=== PATIENT | female | born 1975 | race African-American/Black ===

== ENCOUNTER 2017-05-05 00:19 | Observation (INO) | payer OTHER ==
[2017-05-05] VITALS (11 sets, daily range): BP systolic 105–121; BP diastolic 55–72
[~2017-05-05] VITALS: Ht 175.3 cm; Wt 95.1 kg
[~2017-05-05 00:19] MED LIST: ACETAMINOPHEN650 M7 PO; ASPIR 8181 M1 PO; ASPIR-LOW81 MG PO; ATORVASTATIN CA40 MG PO; CLOPIDOGREL75 MG PO; FAMOTIDINE20 MG PO; HEPARIN SO5000 UNITS SC; LEVAQUIN500 MG PO; LIPITOR40 MG PO; LO-DOSE ASPIRIN81 M1 PO; METOPROLOL TART25 MG PO; PEPCID20 MG PO; PLAVIX75 MG PO
[2017-05-05 01:30] LABS: HEMATOCRIT 21.9 % (36.0-46.0); MCH 16.5 PG (29.0-34.0); MCHC 29.7 G/DL (30.0-36.0); MCV 55.7 FL (83-99); PLATELET COUNT 247 K/uL (156-360); RBC DIS.WIDTH-CV 20.5 % (11.8-14.6); RBC DIS.WIDTH-SD 39.1 % (39-53); RED BLOOD COUNT 3.93 M/uL (3.80-5.20)
[2017-05-05 01:31] LABS: HEMOGLOBIN 6.5 G/DL (11.9-15.5); INTER. NORMALIZED RATIO 1.1
[2017-05-05 01:34] LABS: PTT 29.1 SEC (25-37)
[2017-05-05 01:35] LABS: CHLORIDE 107 mEq/L (99-109); POTASSIUM 4.1 mEq/L (3.7-5.4); SODIUM 137 mEq/L (136-147)
[2017-05-05 01:37] LABS: GLUCOSE 107 mg/dL (70-99)
[2017-05-05 01:41] LABS: GFR ESTIMATE (CALCULATED) > 59 mL/min/
[2017-05-05 01:42] LABS: UREA NITROGEN (BUN) 11 mg/dL (9-23)
[2017-05-05 01:46] LABS: TROP-I INTERPRETATION NEGATIVE; TROPONIN-I 0.01 ng/mL (0.0-0.30)
[2017-05-05 02:17] LABS: HDL CHOLESTEROL 42 MG/DL (Desirable>=50); LDL CHOLESTEROL 96 mg/dL (Desirable<100); NON-HDL CHOLESTEROL 106 mg/dL (Desirable<160); TOTAL CHOLESTEROL 148 mg/dL (Desirable<200); TRIGLYCERIDES 49 MG/DL (Normal: <150)
[2017-05-05 06:23] LABS: IRON 13 MCG/DL (35-150); TRANSFERRIN (TIBC) 390.5 mg/dL (215-380); TRANSFERRIN SATUR. 3 % (20-55)
[2017-05-05 08:17] LABS: TROP-I INTERPRETATION NEGATIVE; TROPONIN-I < 0.01 ng/mL (0.0-0.30)
[2017-05-05 09:57] LABS: HEMOGLOBIN A1c (GLYCOHEMOGLOB) 5.5 % (Below 5.7)
[2017-05-05] MEDS ORDERED: TYLENOL EXTRA500 MG PO (10:13)
[2017-05-05 14:16] LABS: TROP-I INTERPRETATION NEGATIVE; TROPONIN-I < 0.01 ng/mL (0.0-0.30)
[2017-05-05 15:26] LABS: HEMATOCRIT 28.4 % (36.0-46.0); HEMOGLOBIN 8.5 G/DL (11.9-15.5); MCV 61.1 FL (83-99)
== END 2017-05-05 16:19 | disposition home or self-care (01) ==
LOC: EME 00:19 → EDOF 04:37 → ENRESERV 04:38 → 5WEST 07:32
PROVIDERS: Emergency Medicine; Hospitalist; Physician Assistant
PROC: 30233N1 Transfusion of Nonautologous Red Blood Cells into Peripheral Vein, Percutaneous Approach (ICD-10-PCS; principal; 2017-05-05)
DX: N92.0 Excessive and frequent menstruation with regular cycle (principal); D50.0 Iron deficiency anemia secondary to blood loss (chronic); D25.9 Leiomyoma of uterus, unspecified; Z86.73 Personal history of transient ischemic attack (TIA), and cerebral infarction without residual deficits; R51 Headache; R07.9 Chest pain, unspecified; Z82.3 Family history of stroke; Z83.3 Family history of diabetes mellitus; I10 Essential (primary) hypertension; E78.5 Hyperlipidemia, unspecified; Z79.02 Long term (current) use of antithrombotics/antiplatelets
CPT/HCPCS: 70450; 70551; 71046; 80048; 80061; 83036; 83540; 84466; 84484; 85014; 85018; 85027; 85610; 85730; 86850; 86900; 86901; 86920; 93005; 93306; 93880; 99281; 99285; G0378; J1650; J1756; J7050; P9016

== ENCOUNTER 2017-07-21 05:44 | Day surgery (SDC) | payer OTHER ==
[~2017-07-21] VITALS: Ht 177.8 cm; Wt 94.3 kg
[~2017-07-21 05:44] MED LIST changes: +NORETHINDRONE AC5 MG PO; +TYLENOL EXTRA500 MG PO
[2017-07-21 06:29] LABS: HEMATOCRIT 31.3 % (36.0-46.0); MCV 65.3 FL (83-99)
[2017-07-21 06:41] LABS: HEMOGLOBIN 9.7 G/DL (11.9-15.5)
[2017-07-21] MEDS ORDERED: PLAVIX75 MG PO (07:04)
[2017-07-21 07:05] VITALS: BP 122/70
[2017-07-21 12:36] VITALS: BP 133/71
[2017-07-21 20:49] VITALS: BP 122/71
[2017-07-22 00:16] VITALS: BP 118/68
[2017-07-22 04:09] VITALS: BP 120/72
[2017-07-22 06:40] LABS: CHLORIDE 108 MEQ/L (99-109); CREATININE 1.1 MG/DL (0.6-1.3); GFR ESTIMATE (CALCULATED) > 59 mL/min/; GLUCOSE 112 mg/dL (70-99); POTASSIUM 4.9 MEQ/L (3.7-5.4); SODIUM 139 MEQ/L (136-147); UREA NITROGEN (BUN) 7 mg/dL (9-23)
[2017-07-22 06:48] LABS: BASOPHIL (%) 0.1 % (0-1); EOSINOPHIL (%) 0 % (0-5); HEMATOCRIT 26.4 % (36.0-46.0); HEMOGLOBIN 8.2 G/DL (11.9-15.5); IMMATURE GRANULOCYTE (%) 0.2 % (0.0-0.7); LYMPHOCYTE (%) 16.2 % (15-42); LYMPHOCYTE COUNT 1.3 K/uL (1.0-2.8); MCH 20.2 PG (29.0-34.0); MCHC 31.1 G/DL (30.0-36.0); MONOCYTE (%) 8.2 % (3-12); MONOCYTE COUNT 0.7 K/uL (0-0.8); NEUTROPHIL (%) 75.3 % (45-76); NEUTROPHIL COUNT 6.2 K/uL (1.8-6.4); PLATELET COUNT 246 K/uL (156-360); RBC DIS.WIDTH-CV 26.8 % (11.8-14.6); RBC DIS.WIDTH-SD 60.5 % (39-53); RED BLOOD COUNT 4.06 M/uL (3.80-5.20); WHITE BLOOD COUNT 8.3 K/uL (4.1-10.2)
[2017-07-22 07:52] VITALS: BP 111/60
== END 2017-07-22 11:17 | disposition home or self-care (01) ==
LOC: SDC 05:44 → 2SOUTH 10:35 → ENRESERV 10:47 → SDC 11:18 → ENRESERV 12:07 → 2EASTP 12:24
PROVIDERS: Obstetrics & Gynecology Gynecology
PROC: 0UT94ZZ Resection of Uterus, Percutaneous Endoscopic Approach (ICD-10-PCS; principal; 2017-07-21)
PROC: 0UT74ZZ Resection of Bilateral Fallopian Tubes, Percutaneous Endoscopic Approach (ICD-10-PCS; principal; 2017-07-21)
DX: D25.9 Leiomyoma of uterus, unspecified (principal); N80.0 Endometriosis of uterus; K66.0 Peritoneal adhesions (postprocedural) (postinfection); I10 Essential (primary) hypertension; D50.9 Iron deficiency anemia, unspecified; D57.3 Sickle-cell trait; Z86.73 Personal history of transient ischemic attack (TIA), and cerebral infarction without residual deficits
CPT/HCPCS: 80048; 85014; 85018; 85025; 86850; 86900; 86901; 87086; 88307; G0378; J0690; J1100; J1170; J1644; J1885; J2001; J2250; J2405; J2710; J3010; J3475; J7120; J7643; P9047; Q0175; S0020

== ENCOUNTER 2017-08-05 13:53 | Inpatient (IN) | payer OTHER ==
[2017-08-05 15:29] LABS: ALBUMIN 3.9 g/dL (3.2-4.8); CHLORIDE 100 mEq/L (99-109); HEMATOCRIT 28.3 % (36.0-46.0); HEMOGLOBIN 8.9 G/DL (11.9-15.5); MCH 20.2 PG (29.0-34.0); MCHC 31.4 G/DL (30.0-36.0); MCV 64.2 FL (83-99); POTASSIUM 5.6 mEq/L (3.7-5.4); RBC DIS.WIDTH-CV 25.2 % (11.8-14.6); RBC DIS.WIDTH-SD 55.5 % (39-53); RED BLOOD COUNT 4.41 M/uL (3.80-5.20); SODIUM 135 mEq/L (136-147); WHITE BLOOD COUNT 13.4 K/uL (4.1-10.2)
[2017-08-05 15:30] LABS: AMYLASE 39 IU/L (1-118); PLATELET COUNT 383 K/uL (156-360)
[2017-08-05 15:32] LABS: GLUCOSE 92 mg/dL (70-99); TOTAL PROTEIN 7.5 g/dL (6.4-8.3)
[2017-08-05 15:33] LABS: TOTAL BILIRUBIN 0.4 mg/dL (0.0-1.0)
[2017-08-05 15:35] LABS: ALKALINE PHOSPHATASE 62 IU/L (3-129); CREATININE 0.9 mg/dL (0.6-1.3); GFR ESTIMATE (CALCULATED) > 59 mL/min/
[2017-08-05 15:36] LABS: UREA NITROGEN (BUN) 6 mg/dL (9-23)
[2017-08-05 15:37] LABS: AST (GOT) 28 IU/L (2-34)
[2017-08-05 15:38] LABS: ALT (GPT) 18 IU/L (3-49)
[2017-08-05 15:39] LABS: LIPASE 7 U/L (1.0-51.0)
[2017-08-05 16:00] LABS: C-REACTIVE PROTEIN 135.8 MG/L (0-10)
[2017-08-05 21:21] VITALS: BP 113/67
[2017-08-05 23:52] VITALS: BP 90/53
[2017-08-06] VITALS (12 sets, daily range): BP systolic 102–116; BP diastolic 59–73
[2017-08-06 06:28] LABS: BASOPHIL (%) 0.2 % (0-1); EOSINOPHIL (%) 3.2 % (0-5); EOSINOPHIL COUNT 0.3 K/uL (0-0.3); HEMATOCRIT 24.3 % (36.0-46.0); HEMOGLOBIN 7.4 G/DL (11.9-15.5); IMMATURE GRANULOCYTE (%) 0.6 % (0.0-0.7); LYMPHOCYTE (%) 13.2 % (15-42); LYMPHOCYTE COUNT 1.3 K/uL (1.0-2.8); MCH 19.7 PG (29.0-34.0); MCHC 30.5 G/DL (30.0-36.0); MCV 64.6 FL (83-99); MONOCYTE (%) 7.6 % (3-12); MONOCYTE COUNT 0.7 K/uL (0-0.8); NEUTROPHIL (%) 75.2 % (45-76); NEUTROPHIL COUNT 7.3 K/uL (1.8-6.4); PLATELET COUNT 329 K/uL (156-360); RBC DIS.WIDTH-CV 24.8 % (11.8-14.6); RBC DIS.WIDTH-SD 55.7 % (39-53); RED BLOOD COUNT 3.76 M/uL (3.80-5.20); WHITE BLOOD COUNT 9.8 K/uL (4.1-10.2)
[2017-08-06 06:50] LABS: CHLORIDE 103 MEQ/L (99-109); GFR ESTIMATE (CALCULATED) > 59 mL/min/; GLUCOSE 77 mg/dL (70-99); POTASSIUM 4.7 MEQ/L (3.7-5.4); SODIUM 140 MEQ/L (136-147); UREA NITROGEN (BUN) 7 mg/dL (9-23)
[2017-08-07 01:19] VITALS: BP 102/65
[2017-08-07 04:25] VITALS: BP 99/57
[2017-08-07 06:16] LABS: BASOPHIL (%) 0.3 % (0-1); EOSINOPHIL (%) 2.7 % (0-5); EOSINOPHIL COUNT 0.2 K/uL (0-0.3); HEMATOCRIT 28.6 % (36.0-46.0); HEMOGLOBIN 9.1 G/DL (11.9-15.5); IMMATURE GRANULOCYTE (%) 0.6 % (0.0-0.7); LYMPHOCYTE COUNT 1.1 K/uL (1.0-2.8); MCH 21.2 PG (29.0-34.0); MCHC 31.8 G/DL (30.0-36.0); MCV 66.7 FL (83-99); MONOCYTE (%) 6.3 % (3-12); MONOCYTE COUNT 0.6 K/uL (0-0.8); NEUTROPHIL (%) 78.1 % (45-76); PLATELET COUNT 309 K/uL (156-360); RBC DIS.WIDTH-CV 27.1 % (11.8-14.6); RBC DIS.WIDTH-SD 60.9 % (39-53); RED BLOOD COUNT 4.29 M/uL (3.80-5.20); WHITE BLOOD COUNT 8.9 K/uL (4.1-10.2)
[2017-08-07 06:35] LABS: CHLORIDE 103 MEQ/L (99-109); CREATININE 0.9 MG/DL (0.6-1.3); GFR ESTIMATE (CALCULATED) > 59 mL/min/; GLUCOSE 79 mg/dL (70-99); POTASSIUM 4.8 MEQ/L (3.7-5.4); SODIUM 139 MEQ/L (136-147); UREA NITROGEN (BUN) 6 mg/dL (9-23)
[2017-08-07 07:29] VITALS: BP 118/69
[2017-08-07 15:45] VITALS: BP 107/64
[2017-08-07 19:06] VITALS: BP 126/67
[2017-08-07 23:59] VITALS: BP 126/67
[2017-08-08 06:58] LABS: ALKALINE PHOSPHATASE 45 IU/L (3-129); ALT (GPT) 13 IU/L (3-49); AST (GOT) 16 IU/L (2-34); CHLORIDE 103 MEQ/L (99-109); CREATININE 0.9 MG/DL (0.6-1.3); GFR ESTIMATE (CALCULATED) > 59 mL/min/; GLUCOSE 83 mg/dL (70-99); POTASSIUM 4.6 MEQ/L (3.7-5.4); SODIUM 139 MEQ/L (136-147); TOTAL BILIRUBIN 0.3 MG/DL (0.0-1.0); TOTAL PROTEIN 5.8 G/DL (6.4-8.3); UREA NITROGEN (BUN) 6 mg/dL (9-23)
[2017-08-08 07:34] VITALS: BP 116/78
[2017-08-08 08:17] LABS: BASOPHIL (%) 0.3 % (0-1); EOSINOPHIL COUNT 0.3 K/uL (0-0.3); HEMATOCRIT 29.9 % (36.0-46.0); HEMOGLOBIN 9.3 G/DL (11.9-15.5); IMMATURE GRANULOCYTE (%) 0.5 % (0.0-0.7); LYMPHOCYTE (%) 11.3 % (15-42); LYMPHOCYTE COUNT 1.1 K/uL (1.0-2.8); MCH 20.9 PG (29.0-34.0); MCHC 31.1 G/DL (30.0-36.0); MONOCYTE (%) 6.5 % (3-12); MONOCYTE COUNT 0.6 K/uL (0-0.8); NEUTROPHIL (%) 78.4 % (45-76); NEUTROPHIL COUNT 7.7 K/uL (1.8-6.4); PLATELET COUNT 341 K/uL (156-360); RBC DIS.WIDTH-CV 27.2 % (11.8-14.6); RBC DIS.WIDTH-SD 61.3 % (39-53); RED BLOOD COUNT 4.46 M/uL (3.80-5.20); WHITE BLOOD COUNT 9.8 K/uL (4.1-10.2)
== END 2017-08-08 11:38 | disposition home or self-care (01) | DRG 863 ==
LOC: OPR 13:53 → ENRESERV 14:06 → 2EAST 17:47
PROVIDERS: Obstetrics & Gynecology Gynecology
PROC: 0J9C30Z Drainage of Pelvic Region Subcutaneous Tissue and Fascia with Drainage Device, Percutaneous Approach (ICD-10-PCS; principal; 2017-08-05)
PROC: 30233N1 Transfusion of Nonautologous Red Blood Cells into Peripheral Vein, Percutaneous Approach (ICD-10-PCS; 2017-08-06)
DX: T81.4XXA Infection following a procedure, initial encounter (principal); N73.0 Acute parametritis and pelvic cellulitis; N99.840 Postprocedural hematoma of a genitourinary system organ or structure following a genitourinary system procedure; K56.7 Ileus, unspecified; E66.9 Obesity, unspecified; K59.00 Constipation, unspecified; D50.0 Iron deficiency anemia secondary to blood loss (chronic); D57.3 Sickle-cell trait; R50.9 Fever, unspecified; B96.20 Unspecified Escherichia coli [E. coli] as the cause of diseases classified elsewhere; Z90.710 Acquired absence of both cervix and uterus; Z86.73 Personal history of transient ischemic attack (TIA), and cerebral infarction without residual deficits; Z68.28 Body mass index [BMI] 28.0-28.9, adult
CPT/HCPCS: 49406; 80048; 80053; 82150; 83605; 83690; 85025; 85027; 86140; 86850; 86900; 86901; 86920; 87070; 87075; 87077; 87186; 87205; C1729; C1769; J0295; J0744; J1200; J2405; J3010; J7050; J7120; P9016